=== PATIENT | male | born 1990 | race Caucasian/White ===

== ENCOUNTER 2017-08-23 21:45 | Emergency (ER) | payer OTHER ==
[2017-08-23] MEDS ORDERED: MOTRIN600 MG PO (22:44)
== END 2017-08-23 23:45 | disposition home or self-care (01) ==
LOC: TRA 21:45
DX: S00.81XA Abrasion of other part of head, initial encounter (principal); S60.512A Abrasion of left hand, initial encounter; S60.511A Abrasion of right hand, initial encounter; S70.311A Abrasion, right thigh, initial encounter; T14.8 Other injury of unspecified body region; V23.4XXA Motorcycle driver injured in collision with car, pick-up truck or van in traffic accident, initial encounter
CPT/HCPCS: 99281; 99285